=== PATIENT | female | born 1955 | race Caucasian/White ===

== ENCOUNTER 2017-07-02 03:17 | Emergency (ER) | payer BC ==
[~2017-07-02] VITALS: Ht 170.2 cm; Wt 108.0 kg
[2017-07-02 03:32] VITALS: BP 156/78
[2017-07-02] MEDS ORDERED: RAMI10CA PO (03:40)
[2017-07-02] MEDS ORDERED: INSUHUMDS SC (03:40)
[2017-07-02] MEDS ORDERED: ATOR40TA75 PO (03:40)
[2017-07-02] MEDS ORDERED: FLAG500T PO (03:40)
[2017-07-02] MEDS ORDERED: ASPI81TA85 PO (03:40)
[2017-07-02] MEDS ORDERED: CIPR-249 PO (03:40)
[2017-07-02] MEDS ORDERED: INSUDET SC ×2 (03:40)
[2017-07-02] MEDS ORDERED: JANU100T PO (03:40)
[2017-07-02] MEDS ORDERED: METF10004 PO (03:40)
== END 2017-07-02 05:10 | disposition left against medical advice (07) ==
LOC: M ED 03:17
DX: R10.2 Pelvic and perineal pain (principal); Z53.29 Procedure and treatment not carried out because of patient's decision for other reasons

== ENCOUNTER → 2019-12-10 | Outpatient (REF) | payer BC ==
[~2019-12-10] MED LIST: ASPI81TA85 PO; ATOR40TA75 PO; CIPR-249 PO; FLAG500T PO; INSUDET SC; INSUHUMDS SC; JANU100T PO; METF10004 PO; RAMI1CAP26 PO
[2019-12-10 12:51] LABS: BLOOD UREA NITROGEN 17 MG/DL (7-18); CARBON DIOXIDE LEVEL 30 MEQ/L (21-32); CHLORIDE LEVEL 106 MEQ/L (98-107); CHOLESTEROL LEVEL 142 MG/DL (<200); CHOLESTEROL RISK RATIO 3.837 (<5); CREATININE FOR GFR 0.73 MG/DL (0.55-1.30); GLOMERULAR FILTRATION RATE > 60.0 (>45); GLUCOSE, FASTING 108 MG/DL (70-100); HDL CHOLESTEROL 37 MG/DL (>40); LDL CHOLESTEROL 71 MG/DL (<100); NON-HDL-C 105 MG/DL; POTASSIUM SERUM 4.7 MEQ/L (3.5-5.1); SODIUM LEVEL 141 MEQ/L (136-145); TRIGLYCERIDES LEVEL 171 MG/DL (<150)
[2019-12-10 13:05] LABS: HEMOGLOBIN A1c 6.9 %
== END ==
LOC: M LABDRAW1 07:36
PROVIDERS: ATTEND Nurse Practitioner Family
DX: E78.00 Pure hypercholesterolemia, unspecified (principal); E11.65 Type 2 diabetes mellitus with hyperglycemia; I10 Essential (primary) hypertension

== ENCOUNTER 2020-03-25 04:44 | Emergency (ER) | payer BC ==
[~2020-03-25] VITALS: Ht 170.2 cm; Wt 113.4 kg
[2020-03-25] MEDS ORDERED: TRES100I SC (04:50)
--- NOTE | 2020-03-25 05:52 | REPVR ---
PROCEDURE INFORMATION: Exam: CT Head Without Contrast Exam date and time: 03/25/2020 5:32 AM Age: 64 years old Clinical indication: Injury or trauma; Fall; Initial encounter; Concussion / head injury; Consciousness not specified TECHNIQUE: Imaging protocol: Computed tomography of the head without contrast. Radiation optimization: All CT scans at this facility use at least one of these dose optimization techniques: automated exposure control; mA and/or kV adjustment per patient size (includes targeted exams where dose is matched to clinical indication); or iterative reconstruction. COMPARISON: No relevant prior studies available. FINDINGS: Brain: Normal. No hemorrhage. Unremarkable white matter. No mass effect. Ventricles: Normal. No ventriculomegaly. Bones/joints: Unremarkable. No acute fracture. Sinuses: Visualized sinuses are unremarkable. No fluid levels. Mastoid air cells: Visualized mastoid air cells are well aerated. Soft tissues: Unremarkable. IMPRESSION: Negative noncontrast head CT. Electronically signed by: Celso Cast On 03/25/2020 05:52:12 AM
--- NOTE | 2020-03-25 05:52 | REPVR ---
PROCEDURE INFORMATION: Exam: CT Cervical Spine Without Contrast Exam date and time: 03/25/2020 5:32 AM Age: 64 years old Clinical indication: Neck pain; Additional info: Fall TECHNIQUE: Imaging protocol: Computed tomography images of the cervical spine without contrast. Radiation optimization: All CT scans at this facility use at least one of these dose optimization techniques: automated exposure control; mA and/or kV adjustment per patient size (includes targeted exams where dose is matched to clinical indication); or iterative reconstruction. COMPARISON: No relevant prior studies available. FINDINGS: Vertebrae: No acute fracture. Normal alignment. C2-C3: No significant disc protrusion. No severe spinal canal stenosis. No significant neural foraminal narrowing. C3-C4: Slight interspace narrowing with minimal degenerative changes and no spinal or foraminal stenosis. C4-C5: Mild interspace narrowing with paracentral osteophytes and degenerative changes of uncovertebral joints with borderline left neural foraminal stenosis. C5-C6: Moderate interspace narrowing with minimal posterior protrusion and paracentral osteophytes. There is borderline right neural foraminal stenosis. C6-C7: Moderate interspace narrowing with minimal broad-based posterior protrusion and osteophytes centered to the left of midline. No significant spinal or foraminal stenosis. C7-T1: Mild interspace narrowing with early degenerative changes and no spinal or foraminal stenosis. Soft tissues: Unremarkable. Thyroid: 7 mm nodule in the right thyroid. No follow-up is necessary. Lungs: Lung apices are normal. IMPRESSION: 1. Mild multilevel degenerative changes with some borderline neural foraminal stenosis at several levels. No spinal stenosis. 2. No acute fracture or subluxation. COMMENTS: Consistent with the [employer]'s Incidental Findings Committee white paper (J [employer]iol 2015): In patients aged 35 years and older with an incidental thyroid nodule equal to or greater than 1.[address], MRI or extrathyroidal US, further evaluation with dedicated thyroid US is recommended for patients with normal life expectancy and without comorbidities. For smaller nodules without suspicious features, no further evaluation or follow up is recommended. Electronically signed by: Celso Cast On 03/25/2020 05:51:12 AM
[2020-03-25] MEDS ORDERED: NAPR-885 PO (06:05)
[2020-03-25 06:16] VITALS: BP 163/76
== END 2020-03-25 06:33 | disposition home or self-care (01) ==
LOC: M ED 04:44
DX: S13.9XXA Sprain of joints and ligaments of unspecified parts of neck, initial encounter (principal); S00.03XA Contusion of scalp, initial encounter; W01.198A Fall on same level from slipping, tripping and stumbling with subsequent striking against other object, initial encounter; Y92.098 Other place in other non-institutional residence as the place of occurrence of the external cause; M50.30 Other cervical disc degeneration, unspecified cervical region; E11.9 Type 2 diabetes mellitus without complications; E78.5 Hyperlipidemia, unspecified; Z88.0 Allergy status to penicillin; Z79.899 Other long term (current) drug therapy; Z79.4 Long term (current) use of insulin; Z79.82 Long term (current) use of aspirin

== ENCOUNTER → 2021-11-09 | Outpatient (REF) ==
[~2021-11-09] MED LIST changes: -ASPI81TA85 PO; +ASPI81TA86 PO; +NAPR-885 PO; +TRES100I SC
== END ==
LOC: M EMP 16:50
PROVIDERS: ATTEND Family Medicine
DX: Z11.52 Encounter for screening for COVID-19 (principal); Z20.822 Contact with and (suspected) exposure to COVID-19

== ENCOUNTER 2021-11-11 10:28 | Outpatient (CLI) | payer BC ==
[~2021-11-11] VITALS: Ht 170.2 cm; Wt 106.0 kg
[~2021-11-11 10:28] MED LIST changes: +ALBUTEROL 90 MCG/ACT 8GM HFA INHALER INH PRN; +ALBUTEROL SULFATE 2.5 MG/0.5 ML INH NEB SOLN INH PRN; +EPINEPHrine INJ 1 MG/ML 1ML AMP IM PRN; +NS 1,000 ML IV SCH; +diphenhydrAMINE 50MG/ML VIAL (J1200) IV PRN; +methylPREDNISolone 125MG 2ML VIAL IV PRN
[2021-11-11 10:53] VITALS: BP 144/67
[2021-11-11] MEDS ORDERED: diphenhydrAMINE 25MG CAP PO ONE (11:00)
[2021-11-11] MEDS ORDERED: ACETAMINOPHEN TAB 650MG DOSE (2X325MG) PO ONE (11:00)
[2021-11-11] MEDS ORDERED: BAMLANIVIMAB 700 MG, ETESEVIMAB 1,400 MG in NS 250 ML IV ONE (11:00)
[2021-11-11 11:23] VITALS: BP 153/72
[2021-11-11 11:53] VITALS: BP 143/71
[2021-11-11 12:23] VITALS: BP 157/74
== END 2021-11-11 12:23 | disposition home or self-care (01) ==
LOC: M OPCLI4PR 10:28
PROVIDERS: ATTEND Registered Nurse
DX: U07.1 COVID-19 (principal); Z88.0 Allergy status to penicillin

== ENCOUNTER → 2023-08-31 | Outpatient (REF) | payer BC, MEDICARE ==
[~2023-08-31] MED LIST changes: -ALBUTEROL 90 MCG/ACT 8GM HFA INHALER INH PRN; -ALBUTEROL SULFATE 2.5 MG/0.5 ML INH NEB SOLN INH PRN; -EPINEPHrine INJ 1 MG/ML 1ML AMP IM PRN; -NS 1,000 ML IV SCH; -diphenhydrAMINE 50MG/ML VIAL (J1200) IV PRN; -methylPREDNISolone 125MG 2ML VIAL IV PRN
== END ==
LOC: M LAB REF 12:36
PROVIDERS: ATTEND Internal Medicine
DX: N39.0 Urinary tract infection, site not specified (principal)

== ENCOUNTER → 2024-12-25 | Outpatient (CLI) | payer MEDICARE ==
[~2024-12-25] MED LIST changes: +RAMI10CA64 PO; -RAMI1CAP26 PO
== END ==
LOC: M CARPUL 10:51
PROVIDERS: ATTEND Registered Nurse
DX: I50.30 Unspecified diastolic (congestive) heart failure (principal); I35.8 Other nonrheumatic aortic valve disorders; I08.0 Rheumatic disorders of both mitral and aortic valves; I37.0 Nonrheumatic pulmonary valve stenosis

== ENCOUNTER → 2025-02-14 | Outpatient (REF) | payer MEDICARE, OTHER | LOC: M SFHCWAGY 13:19 | PROVIDERS: ATTEND Obstetrics & Gynecology | DX: Z12.72 Encounter for screening for malignant neoplasm of vagina (principal) ==

== ENCOUNTER → 2025-06-13 | Outpatient (REF) | payer MEDICARE ==
[2025-06-13 14:05] LABS: IRON (FE) 68.0 UG/DL (50-170)
[2025-06-13 14:06] LABS: PERCENT SATURATION 20.8 % (13.2-45.0)
[2025-06-13 14:08] LABS: VITAMIN B12 LEVEL 428.0 PG/ML (211-911)
== END ==
LOC: M LAB REF 12:40
PROVIDERS: ATTEND Internal Medicine
DX: D64.9 Anemia, unspecified (principal)